=== PATIENT | female | born 1955 | race Caucasian/White ===

== ENCOUNTER → 2017-07-27 | Outpatient (CLI) | payer OTHER, MEDICARE ==
--- NOTE | ~2017-07-27 | ECH ---
Transthoracic Echocardiography Report (TTE) Demographics Patient Name CLOVER BURKETT Date of Study 07/27/2017 L Patient Number [id number] Visit Number [id number] Date of 1955 Room Number Accession Number [id number] Gender Female Age 62 year(s) Referring Bharath Pena MD Judicial Registrar Gail Almeida [facility] Physician Physician Interpreting King Vinny Payan MD [employer] Registrar Physician Supervising Ordering Physician Bharath Pena MD, MD/P Nurse Stress Anesthetic Assistant Conclusions Contractility Score Summary Normal Left Ventricular contractility was noted. Summary Technically adequate exam. The estimated left ventricular ejection fraction is 60-65%. Diastolic assessment reveals Grade I diastolic dysfunction. No significant valvular abnormalities. Procedure Type of Study TTE procedure:Echo Complete SF. Procedure Date Date: 07/27/2017 Start: 09:17 AM Technical Quality: Good visualization Indications:Edema. Appropriate Use Criteria: 9 Height: 64 inches Weight: 162 pounds BSA: 1.79 m Rhythm: NSR HR: 88 bpm BP: 84/68 mmHg M-Mode/2D Measurements LV Diastolic Dimension: 4.56 cm LV Systolic Dimension: 3.86 cm LV Septum Diastolic: 0.63 cm LV PW Diastolic: 0.75 cm AO Root Dimension: 2.81 cm Cardiac Output: 3.88 l/min LA Dimension: 3.55 cm Cardiac Index: 2.17 l/min*m RV Diastolic Dimension: 3.42 cm LA volume index: 26 ml/m LVOT: 2.04 cm LVOT VTI: 13.51 cm RV Base: 2.7 cm LV Stroke volume: 44.14 ml RV Mid: 1.7 cm LV Stroke volume index: 24.66 ml/m TAPSE: 2.2 cm TDI-S': 14 cm/s Doppler Measurements AV Peak Velocity: 0.97 m/s MV Peak E-Wave: 0.79 m/s AV Peak Gradient: 3.79 mmHg MV Peak A-Wave: 1.01 m/s AV Mean Gradient: 2.18 mmHg MV E/A Ratio: 0.79 LVOT Peak Velocity: 0.8 m/s MV P1/2t: 88.9 msec AV Area (Continuity):2.44 cm MV Deceleration Time: 385.4 msec MV Area (PHT): 2.47 cm PV Peak Velocity: 0.91 m/s E' Septal Velocity: 0.1 m/s PV Peak Gradient: 3.34 mmHg E' Lateral Velocity: 0.09 m/s A' Septal Velocity: 0.13 m/s A' Lateral Velocity: 0.12 m/s RA Area: 11.96 cm Findings Left Ventricle Normal left ventricle size and function. Diastolic assessment reveals Grade I diastolic dysfunction. Right Ventricle Normal right ventricle structure and function. Left Atrium Normal left atrial size. Right Atrium Normal right atrial size. Mitral Valve Normal mitral valve structure and function. Trivial mitral regurgitation by color Doppler. Aortic Valve Normal aortic valve structure and function. Tricuspid Valve Normal tricuspid valve structure and function. Trivial tricuspid regurgitation by color Doppler. Insufficient jet to calculate pulmonary pressures. Pulmonic Valve Normal pulmonic valve structure and function. Mild pulmonic valve regurgitation by color Doppler. Pericardial Effusion No evidence of pericardial effusion. Miscellaneous Visualized portions of the aortic root and ascending aorta appear normal in size. Pleural Effusion No evidence of pleural effusion. Contractility Score LV regional wall motion:(0-Non visualized 1-Normal 2-Hypokinesis 3-Akinesis 4-Dyskinesis 5-Aneurysm) Signature
== END | disposition home or self-care (01) ==
LOC: CARD 08:53
DX: R60.9 Edema, unspecified (principal); I51.89 Other ill-defined heart diseases